=== PATIENT | female | born 1970 | race Caucasian/White ===

== ENCOUNTER 2018-10-30 08:43 | Day surgery (SDC) | payer OTHER ==
[2018-10-26 15:00] VITALS: BMI 27.5
[2018-10-30] MEDS ORDERED: PROPOFOL 20 ML ONE ×2 (09:58)
[2018-10-30] MEDS ORDERED: MIDAZOLAM HCL 2 MG/2 ML SINGLE DOSE VIAL ONE (09:58)
[2018-10-30] MEDS ORDERED: LIDOCAINE HCL/PF 2% SDV 5ML VIAL ONE (09:58)
[2018-10-30] MEDS ORDERED: ceFAZolin SODIUM 1 GM VIAL ONE (10:12)
[2018-10-30] MEDS ORDERED: KETOROLAC TROMETHAMINE 30 MG/1 ML VIAL ONE ×2 (10:12→10:46)
[2018-10-30] MEDS ORDERED: ceFAZolin SODIUM 1 GM VIAL IVPB ONE (10:15)
[2018-10-30] MEDS ORDERED: DEXAMETHASONE SOD PHOSPHATE 4 MG/1 ML VIAL ONE (10:21)
[2018-10-30] MEDS ORDERED: ALBUTEROL SO4 8 GM HFA INHALER IH PRN ×3 (10:56→11:43)
--- NOTE | 2018-10-30 10:56 | HP ---
History & Physical Update - History History: No Change (Menorrhagia) - Physical Physical: No Change - Assessment Assessment: No Change - Plan Plan: No Change (Hysteroscopy, D&C, thermal endometrial ablation)
--- NOTE | 2018-10-30 11:00 | OP ---
Operative Note - Note: Operative Date: 10/30/18 Pre-Operative Diagnosis: Menorrhagia, fibroids uterus Operation: Hysteroscopy, D&C, endometrial ablation Findings: Enlarged uterine cavity (sounded to 9cm) w/o lesions. Post-Operative Diagnosis: Same as Pre-op Surgeon: Ayaan Fong Anesthesiologist/DRY PASTE SUPERVISOR: Анна Prado Anesthesia: General Specimens Removed: Endometrial curettings Estimated Blood Loss (mls): 10 Drains & Tubes with Location: Straight cath of bladder at end of procedure Drains, Volume Out (mls): 20 Blood Volume Replaced (mls): 0 Fluid Volume Replaced (mls): 500 Operative Report Dictated: Yes
[2018-10-30] MEDS ORDERED: oxyCODONE HCL 5 MG TABLET PO PRN (11:01)
[2018-10-30] MEDS ORDERED: ONDANSETRON 4 MG/2 ML VIAL IVPUSH PRN (11:01)
[2018-10-30] MEDS ORDERED: ACETAMINOPHEN 1000 MG/100 ML VIAL (NON FORMULARY) IVPB PRN (11:02)
[2018-10-30] MEDS ORDERED: LACTATED RINGERS SOLUTION 1,000 ML IV SCH (11:15)
[2018-10-30] MEDS ORDERED: ACETAMINOPHEN 1000 MG/100 ML VIAL (NON FORMULARY) IVPB ONE (11:36)
[2018-10-30] MEDS ORDERED: ONDANSETRON 4 MG/2 ML VIAL ONE (12:12)
[2018-10-30] MEDS ORDERED: ONDANSETRON 4 MG/2 ML VIAL IVPUSH ONE (12:16)
--- NOTE | 2018-10-30 12:54 | OP ---
DATE OF OPERATION: 10/30/2018 PREOPERATIVE DIAGNOSIS: Menorrhagia, uterine fibroids. POSTOPERATIVE DIAGNOSIS: Menorrhagia, uterine fibroids. PROCEDURE: Hysteroscopy, dilation and curettage, endometrial ablation ([facility]). SURGEON: Bonny Jules MD ANESTHESIOLOGIST: Анна Prado MD ANESTHESIA: General. COMPLICATIONS: None. ESTIMATED BLOOD LOSS: 10 mL. IV FLUIDS: 500 mL. PATHOLOGY: Endometrial curettings. COMPLICATIONS: None. URINE OUTPUT: 20 mL of clear urine on straight catheterization of bladder at the end of the procedure. FINDINGS: Examination under anesthesia revealed a small mobile uterus with no pelvic or adnexal masses. Hysteroscopy revealed a slightly enlarged uterine cavity that was sounded to 9 cm. There were no endometrial lesions noted. Hysteroscopy ablation was done under direct visualization without complications. PROCEDURE: The patient was met preoperatively. Risks, benefits, and alternatives of surgery were discussed at length. We reviewed the risks of infection, bleeding, perforation, thermal burn, failed procedure with lasting menorrhagia, uterine adhesions, need for hysterectomy, etc. The consent was reviewed and all questions were answered. The patient verbalized understanding, she signed the consent form and requested to proceed with the surgery. The patient was then brought to the OR with IV running. She was placed on the surgical table in the supine position. General anesthesia was achieved without difficulty. The patient was then placed in dorsal lithotomy position using adjustable Vipul stirrups. The patient was examined under anesthesia, with the findings as above. The patient was then prepped and draped in the usual sterile fashion. A timeout procedure was conducted as per standard protocol. A weighted speculum was introduced inside the patient's vagina, with good visualization of the cervix. The cervix was grasped with a single-tooth tenaculum. The endocervical canal was dilated to accommodate a size 21 Mcmanus dilator. Diagnostic hysteroscopy was performed, with the findings as described above. The hysteroscope was then removed. A sharp uterine curettage was done and the tissue was submitted to Pathology for evaluation. The hysteroscope was then placed inside the endocervical canal. A thermal endometrial ablation was performed under direct real-time visualization using an Cisco system. No complications during the procedure. Good results were noted at the end of the procedure. Once the procedure was completed, good hemostasis was confirmed. The instruments were removed from the patient. Once again good hemostasis was confirmed. Sponge, lap, instrument counts were correct. A straight catheterization was performed. The patient was then returned to supine position. She was transferred to recovery room awake and in stable condition. BONNY JULES M.D. [id number]
[2018-10-30] MEDS ORDERED: PROMETHAZINE HCL 25 MG/1 ML VIAL IVPUSH PRN (14:22)
[2018-10-30 14:41] VITALS: TEMP 98.1
[2018-10-30 16:46] LABS: ALBUMIN 3.4 g/dl (3.4-5.0); BILIRUBIN,TOTAL 0.4 mg/dL (0.2-1); BLOOD UREA NITROGEN 14.3 mg/dL (7-18); CREATININE 0.7 mg/dL (0.55-1.3); POTASSIUM 4.3 mmol/L (3.5-5.1); TOT PROT 6.7 g/dl (6.4-8.2)
[2018-10-30 16:53] VITALS: BP 123/78; PULSE 80
--- NOTE | 2018-11-01 17:50 | PATH ---
Surgical Pathology Report Patient Name: ANN [facility]. Rec. #: [id number] /Age/Gender: 1970 (Age: 48) / F Account: [id number] Location: [facility] Taken: 10/30/2018 Received: 10/31/2018 Reported: 11/01/2018 Physicians: Ayaan Fong M.D. Specimen(s) Received ENDOMETRIAL CURETTINGS Clinical History Excessive and frequent menstruation Final Diagnosis ENDOMETRIAL CURETTINGS, DILATION AND CURETTAGE: PROLIFERATIVE ENDOMETRIUM WITH CHRONIC ENDOMETRITIS AND BENIGN CERVICAL TISSUE. Electronically Signed Radha Lundberg M.D. Gross Description Received in formalin labeled "endometrial curettings," is a 2.5 x 2.3 x 0.3 cm aggregate of chery-brown soft tissue fragments. The formalin is filtered and the specimen is entirely submitted in one cassette. /10/31/201810/31/2018
== END 2018-10-30 16:56 | disposition home or self-care (01) ==
LOC: JASU-SURG 08:43
PROVIDERS: ATTEND Obstetrics & Gynecology
PROC: 0U5B8ZZ Destruction of Endometrium, Via Natural or Artificial Opening Endoscopic (ICD-10-PCS; principal; 2018-10-30 10:00)
PROC: 0UDB7ZX Extraction of Endometrium, Via Natural or Artificial Opening, Diagnostic (ICD-10-PCS; 2018-10-30 10:00)
DX: N92.0 Excessive and frequent menstruation with regular cycle (principal); D25.9 Leiomyoma of uterus, unspecified
CPT/HCPCS: 36415; 80053; 88305-TC; 94760; J0131